=== PATIENT | male | born 1995 | race Caucasian/White ===

== ENCOUNTER 2017-05-08 00:46 | Emergency (ER) | payer MEDICAID, OTHER ==
[2017-05-08 01:02] VITALS: BP 112/73
--- NOTE | 2017-05-08 01:28 | EDM.PDOC ---
ED HPI GENERAL MEDICAL PROBLEM - General Chief Complaint: Skin Complaint Stated Complaint: ITCHY RASH ALL OVER Time Seen by Provider: 05/08/17 01:27 Source of Information: Reports: Patient History Limitations: Reports: No Limitations - History of Present Illness INITIAL COMMENTS - FREE TEXT/NARRATIVE: pt has a rash which covers his entire body. He states he has been waking up itching. The nites are by far the worse. Onset: Gradual Duration: Day(s): Location: Reports: Generalized Associated Symptoms: Reports: Rash denies pain Pain Score (Numeric/FACES): 0 - Related Data Allergies Allergy/AdvReac Type Severity Reaction Status Date / Time No Known Allergies Allergy Verified 05/08/17 01:02 Home Meds: Home Meds NK [No Known Home Meds] 10/20/13 [History] Past Medical History - Past Health History Medical/Surgical History: Denies Medical/Surgical History HEENT History: Reports: Impaired Vision Social & Family History - Tobacco Use Smoking Status *Q: Never Smoker Second Hand Smoke Exposure: No - Caffeine Use Caffeine Use: Reports: Energy Drinks - Recreational Drug Use Recreational Drug Use: No ED ROS GENERAL - Review of Systems Review Of Systems: See Below Constitutional: Reports: No Symptoms HEENT: Reports: No Symptoms Respiratory: Reports: No Symptoms Cardiovascular: Reports: No Symptoms Endocrine: Reports: No Symptoms GI/Abdominal: Reports: No Symptoms : Reports: No Symptoms Skin: Reports: Rash ED EXAM, SKIN/RASH Exam: See Below Text/Narrative:: rash over his entire body except on his face Exam Limited By: No Limitations General Appearance: Alert, Anxious Ears: Normal TMs Nose: Normal Inspection Throat/Mouth: Normal Inspection Head: Atraumatic Neck: Normal Inspection Skin: Rash, Other (Has the look of scabies. ) Course - Vital Signs Last Recorded V/S: Last Vital Signs Temp 35.5 C 05/08/17 01:08 Pulse 60 05/08/17 01:08 Resp 16 05/08/17 01:08 BP 112/73 05/08/17 01:08 Pulse Ox 100 05/08/17 01:08 Departure - Departure Time of Disposition: 01:27 Disposition: Home, Self-Care 01 Condition: Fair Clinical Impression: Scabies - Discharge Information Referrals: Abe Garland MD [Primary Care Provider] - Forms: ED Department Discharge Care Plan Goals: wash all bedding and treat with permethrin lotion 5 % leave on for 6-7 hours then shower it off, retreat in 1 week. Use benadryl 50mg q6h prn for itching.
== END 2017-05-08 01:44 | disposition home or self-care (01) ==
LOC: JP.ED 00:46
DX: B86 Scabies (principal)
CPT/HCPCS: 99283

== ENCOUNTER 2018-12-10 17:03 | Emergency (ER) | payer SELFPAY ==
[2018-12-10 17:22] VITALS: BP 109/69
--- NOTE | 2018-12-10 18:00 | EDM.PDOC ---
ED HPI GENERAL MEDICAL PROBLEM - General Chief Complaint: Eye Problems Stated Complaint: R EYE PAIN Time Seen by Provider: 12/10/18 18:00 Source of Information: Reports: Patient History Limitations: Reports: No Limitations - History of Present Illness INITIAL COMMENTS - FREE TEXT/NARRATIVE: 23 yo male presents with right eye irritation after grinding a electrical wire to rewire a trailer. Patient was wearing his glasses but not lateral eye cormier. Patient irritated in right eye without improvement with a small amount of fluid then laid down a put a whole bottle of water which improved his symptoms. Patient has had a slight runny nose due to eye watering. Patient has had corneal abrasions in the past. He wears glasses normally. Patient denies photophobia or pain just irritation noted. - Related Data Allergies Allergy/AdvReac Type Severity Reaction Status Date / Time No Known Allergies Allergy Verified 12/10/18 18:14 Home Meds: Home Meds NK [No Known Home Meds] 10/20/13 [History] Past Medical History - Past Health History Medical/Surgical History: Denies Medical/Surgical History HEENT History: Reports: Impaired Vision Social & Family History - Caffeine Use Caffeine Use: Reports: Energy Drinks ED ROS GENERAL - Review of Systems Review Of Systems: See Below ED EXAM GENERAL W FULL EYE - Physical Exam Exam: See Below Exam Limited By: No Limitations General Appearance: Alert, WD/WN, Mild Distress Eye Exam: Right Eye: Corneal Abrasion (noted with flourecein and blue lamp ), Other (slight injection noted), Bilateral Eye: EOMI, PERRL Visual Acuity (R) 20/: 20 Visual Acuity (L) 20/: 20 With Correction: Yes Eyelids: Bilateral: Normal Appearance Conjunctiva & Sclera: Right: Injected, Left: Normal Appearance Cornea Exam: Right: Corneal Abrasion (at 6 o clock inferior margin of cornea), Left: Normal Appearance Extraocular Movements: Bilateral: Intact Pupils: Normal Accommodation Pupillary Reaction: Bilateral: Brisk Anterior Chamber: Bilateral: Normal Appearance Ears: Normal External Exam, Hearing Grossly Normal Nose: Normal Inspection, Normal Mucosa, No Blood Throat/Mouth: Normal Inspection, Normal Lips, Normal Teeth, Normal Gums, Normal Oropharynx, Normal Voice, No Airway Compromise Head: Normocephalic Neck: Normal Inspection, Full Range of Motion Respiratory/Chest: No Respiratory Distress Cardiovascular: Normal Peripheral Pulses, Regular Rate, Rhythm Neurological: Alert, Oriented, CN II-XII Intact, Normal Cognition, Normal Gait, Normal Reflexes, No Motor/Sensory Deficits Psychiatric: Normal Affect, Normal Mood Skin Exam: Warm, Dry, Intact, Normal Color, No Rash Course - Vital Signs Last Recorded V/S: Last Vital Signs Temp 36.3 C 12/10/18 17:18 Pulse 55 L 12/10/18 17:18 Resp 16 12/10/18 17:18 BP 109/69 12/10/18 17:18 Pulse Ox 100 12/10/18 17:18 - Orders/Labs/Meds Orders: Active Orders 24 hr Category Date Time Status Vaccines to be Administered [RC] PER UNIT ROUTINE Care 12/10/18 18:13 Ordered Visual Acuity [Vision Test] [RC] ASDIRECTED Care 12/10/18 17:58 Active Meds: Medications Discontinued Medications Generic Name Dose Route Start Last Admin Trade Name Freq PRN Reason Stop Dose Admin Diphtheria/Tetanus/Acell Pertussis 0.5 ml 12/10/18 18:12 Adacel IM 12/10/18 18:13 .ONCE ONE Departure - Departure Time of Disposition: 18:23 Disposition: Home, Self-Care 01 Clinical Impression: Corneal abrasion, Tetanus toxoid vaccination administered at current visit - Discharge Information Instructions: Corneal Abrasion Referrals: PCP,None [Primary Care Provider] - Forms: ED Department Discharge Additional Instructions: 1. Erythromycin ointment every 4-6 hrs while awake x 7 days to prevent infection due to abrasion. 2. Tetanus updated during ER visit. 3. See Eye Doctor in 2-3 days if not improving sooner if increased pain or photophobia. 4. Return to ER if worsening symptoms or new concerns. 5. Increase fluid intake. - Problem List & Annotations (1) Corneal abrasion SNOMED Code(s): 25449427 Code(s): S05.00XA - INJ CONJUNCTIVA AND CORNEAL ABRASION W/O FB, UNSP EYE, INIT Status: Acute Current Visit: Yes (2) Tetanus toxoid vaccination administered at current visit SNOMED Code(s): 901712221, 581937479 Code(s): Z23 - ENCOUNTER FOR IMMUNIZATION Status: Acute Current Visit: Yes - My Orders Last 24 Hours: My Active Orders 12/10/18 17:58 Visual Acuity [Vision Test] [RC] ASDIRECTED 12/10/18 18:13 Vaccines to be Administered [RC] PER UNIT ROUTINE - Assessment/Plan Last 24 Hours: My Active Orders 12/10/18 17:58 Visual Acuity [Vision Test] [RC] ASDIRECTED 12/10/18 18:13 Vaccines to be Administered [RC] PER UNIT ROUTINE
[2018-12-10] MEDS ORDERED: Diphtheria,Pertussis(Acell),Tetanus Vaccine 0.5 ML SDV IM ONE (18:12)
== END 2018-12-10 18:33 | disposition home or self-care (01) ==
LOC: JP.ED 17:03
DX: S05.01XA Injury of conjunctiva and corneal abrasion without foreign body, right eye, initial encounter (principal); Z23 Encounter for immunization; X58.XXXA Exposure to other specified factors, initial encounter
CPT/HCPCS: 90471; 90715; 99282